=== PATIENT | female | born 1955 | race Caucasian/White ===

== ENCOUNTER 2020-01-19 04:50 | Emergency (ER) | payer BC ==
[~2020-01-19] VITALS: Ht 157.5 cm; Wt 100.0 kg
--- NOTE | 2020-01-19 05:17 | NUR ---
Note rachel in EDM - 01/19/20 at 0518 by PMAZO Nitro SL given 2x with relief. Pt. states that she feels a lot less "heavy" on her chest.
[2020-01-19] MEDS ORDERED: CEPH500C5 PO (05:26)
[2020-01-19 05:35] LABS: CLARITY,URINE CLOUDY (Clear); COLOR,URINE YELLOW (Yellow); GLUCOSE, URINE NEGATIVE (Neg); KETONES,URINE NEGATIVE (Neg); LEUKOCYTE ESTERASE ,URINE MODERATE (Neg); NITRITES, URINE POSITIVE (Neg); OCCULT BLOOD,URINE LARGE (Neg); PROTEIN,URINE 100 mg/dl (Neg); UROBILINOGEN,URINE 0.2 E.U/dL (0.2-1.0)
[2020-01-19 05:46] LABS: UA COLLECTION TYPE CLN CATCH MIDSTREAM
[2020-01-19 05:50] LABS: BACTERIA,URINE 2+ /HPF (Neg); MUCUS STRANDS NONE SEEN /LPF (Neg); RBC,URINE 0-2 /HPF (0-2); SQUAMOUS EPITHELIAL CELL,UR FEW /LPF (FEW); WBC,URINE TNTC /HPF (0-4)
[2020-01-19] MEDS ORDERED: ketorolac trometh inj. 60 MG/2 ML VIAL IM ONE (05:55)
[2020-01-19] MEDS ORDERED: phenazopyridine 100mg tablet PO ONE (05:55)
[2020-01-19 06:04] VITALS: BP 153/95
== END 2020-01-19 06:06 | disposition home or self-care (01) ==
LOC: ER 04:52
DX: N39.0 Urinary tract infection, site not specified (principal); R30.9 Painful micturition, unspecified; R10.30 Lower abdominal pain, unspecified; M54.5 Low back pain; E78.00 Pure hypercholesterolemia, unspecified; I10 Essential (primary) hypertension; F32.9 Major depressive disorder, single episode, unspecified; Z72.89 Other problems related to lifestyle; Z88.5 Allergy status to narcotic agent; Z88.1 Allergy status to other antibiotic agents
CPT/HCPCS: 81001; 87077; 87088; 87186; 96372; 99283; J1885

== ENCOUNTER 2020-09-24 04:38 | Emergency (ER) | payer BC ==
[~2020-09-24] VITALS: Ht 157.5 cm; Wt 79.2 kg
[2020-09-24 04:40] VITALS: BP 126/66
[2020-09-24] MEDS ORDERED: TETanus/Pertussis (Acell)/Diphther VAC/PF (Tdap-Adult) 0.5ml syringe IMVAC ONE (05:15)
== END 2020-09-24 05:36 | disposition home or self-care (01) ==
LOC: ER 04:39
DX: S01.81XA Laceration without foreign body of other part of head, initial encounter (principal); E78.00 Pure hypercholesterolemia, unspecified; I10 Essential (primary) hypertension; F32.9 Major depressive disorder, single episode, unspecified; Z20.3 Contact with and (suspected) exposure to rabies; Z72.89 Other problems related to lifestyle; Z88.5 Allergy status to narcotic agent; Z88.8 Allergy status to other drugs, medicaments and biological substances; X58.XXXA Exposure to other specified factors, initial encounter; Y93.89 Activity, other specified; Y92.89 Other specified places as the place of occurrence of the external cause; Y99.8 Other external cause status
CPT/HCPCS: 90471; 90715; 99283